=== PATIENT | female | born 1935 | race Caucasian/White ===

== ENCOUNTER 2021-01-18 12:42 | Outpatient (CLI) | payer MEDICARE, BC ==
[~2021-01-18 12:42] MED LIST: Iopamidol 370 76% 100 ML VIAL ONE
== END 2021-01-18 12:43 | disposition home or self-care (01) ==
LOC: BICCT 12:42
PROVIDERS: ATTEND Family Medicine
DX: R10.32 Left lower quadrant pain (principal); K57.30 Diverticulosis of large intestine without perforation or abscess without bleeding; I51.7 Cardiomegaly
CPT/HCPCS: 74177; 82565; Q9967

== ENCOUNTER 2023-07-11 07:42 | Outpatient (CLI) | payer MEDICARE, BC | END 2023-07-11 07:43 | disposition home or self-care (01) | LOC: NM 07:42 | PROVIDERS: ATTEND Family Medicine | DX: S22.089A Unspecified fracture of T11-T12 vertebra, initial encounter for closed fracture (principal) | CPT/HCPCS: 78306; A9503 ==

== ENCOUNTER 2023-08-16 11:02 | Emergency (ER) | payer MEDICARE, BC ==
[2023-08-16] MEDS ORDERED: Morphine 4 MG/ML VIAL ONE ×3 (11:47→16:11)
[2023-08-16] MEDS ORDERED: Ondansetron PF 4 MG/2 ML Vial ONE (11:48)
[2023-08-16 12:02] LABS: Bacteria/HPF 1+ HPF (None Seen); Bilirubin Negative (Negative); Blood, Urine Negative (Negative); CAUTI Indications for Culture Dysuria,urgency,freq; Clarity Turbid (Clear); Glucose, Urine (Dipstick) Normal (Negative); Ketone, Urine Negative (Negative); Leukocyte 75 Leu/uL (Negative); Nitrite Negative (Negative); Protein, Urine (Dipstick) Negative (Neg-Trace); RBC/HPF 0-3 HPF (0-3); Specific Gravity, Urine 1.017 (1.002-1.036); Squamous Epithelial 0-3 HPF (0-3); Urobilinogen 3 mg/dL (Less than 2)
[2023-08-16 12:04] LABS: Urine Culture Reflex No No
[2023-08-16 12:15] LABS: #Monocytes 1.3 thou/uL (0.11-0.59); #Neutrophils 12.1 thou/uL (1.40-6.50); %Basophils 0.1 % (0.0-1.0); %Lymphocytes 8.8 % (21.0-51.0); %Neutrophils 81.2 % (42.0-75.0); Hematocrit 37.6 % (36.0-47.0); Hemoglobin 12.3 g/dL (12.0-16.0); Mean Corpuscular HGB CONC 32.7 g/dL (32.0-36.0); Mean Corpuscular Hemoglobin 27.6 pg (27.0-31.0); Mean Corpuscular Volume 84.5 fl (78.0-98.0); Mean Platelet Volume 10.1 fL (7.4-10.4); Platelet Count 343 10x3/uL (130-400); RBC Distribution Width 15.1 % (11.5-14.5); Red Blood Cell (RBC) Count 4.45 mill/uL (4.20-5.40); White Blood Cell (WBC) Count 14.9 10x3/uL (4.8-10.8)
[2023-08-16 12:43] LABS: ALT (SGPT) Less than 7 U/L (8-55); AST (SGOT) 22 U/L (5-34); Albumin 3.5 g/dL (3.4-4.8); Alkaline Phosphatase 76 U/L (40-110); Anion Gap 15 mmol/L (10-20); BUN (Urea Nitrogen) 13 mg/dL (9.8-20.1); Bilirubin, Total 0.5 mg/dL (0.2-1.2); Calc. Creatinine Clearance 0 mL/min (70-130); Calcium 9.2 mg/dL (7.8-10.44); Carbon Dioxide 22 mmol/L (23-31); Chloride 96 mmol/L (98-107); Estimated GFR 85; Globulin 2.8 g/dL (2.4-3.5); Glucose 102 mg/dL (83-110); Potassium 4.5 mmol/L (3.5-5.1); Protein, Total 6.3 g/dL (5.8-8.1); Sodium 128 mmol/L (136-145)
[2023-08-16] MEDS ORDERED: Iopamidol-370 76% 500 ML MDV (1 ML CHARGE) ONE (12:53)
[2023-08-16] MEDS ORDERED: Sodium Chloride 0.9% 100 ML ONE (14:48)
[2023-08-16] MEDS ORDERED: cefTRIAXone (ROCEPHIN) 1 GM VIAL ONE (14:48)
== END 2023-08-16 16:28 | disposition home or self-care (01) ==
LOC: ERS 11:02
DX: M54.50 Low back pain, unspecified (principal); M54.6 Pain in thoracic spine; N39.0 Urinary tract infection, site not specified; I25.10 Atherosclerotic heart disease of native coronary artery without angina pectoris; I10 Essential (primary) hypertension; E78.5 Hyperlipidemia, unspecified; Z79.82 Long term (current) use of aspirin; Z79.899 Other long term (current) drug therapy
CPT/HCPCS: 74177; 80053; 81001; 85025; 86140; 96365; 96375; 96376; J0696; J2270; J2405; J3490; Q9967

== ENCOUNTER 2023-10-09 05:55 | Day surgery (SDC) | payer MEDICARE, BC ==
[2023-10-08 12:44] VITALS: BMI 20.1
[2023-10-09] MEDS ORDERED: CEFAZOLIN 1 GM VIAL ONE (06:30)
[2023-10-09] MEDS ORDERED: CEFAZOLIN 2 GM VIAL ONE (06:30)
[2023-10-09] MEDS ORDERED: Gentamicin 80 MG/2 ML VIAL ONE (06:30)
[2023-10-09] MEDS ORDERED: Lidocaine 1% (PF) 30 ML VIAL ONE (06:30)
[2023-10-09 06:36] LABS: %Basophils 0.7 % (0.0-1.0); %Eosinophils 3.3 % (0.0-10.0); %Lymphocytes 17.6 % (21.0-51.0); %Neutrophils 67.9 % (42.0-75.0); Hematocrit 38.8 % (36.0-47.0); Hemoglobin 12.6 g/dL (12.0-16.0); Mean Corpuscular HGB CONC 32.5 g/dL (32.0-36.0); Mean Corpuscular Hemoglobin 28.3 pg (27.0-31.0); Mean Platelet Volume 11.1 fL (7.4-10.4); Platelet Count 304 10x3/uL (130-400); RBC Distribution Width 14.3 % (11.5-14.5); Red Blood Cell (RBC) Count 4.46 mill/uL (4.20-5.40); White Blood Cell (WBC) Count 8.8 10x3/uL (4.8-10.8)
[2023-10-09 06:37] LABS: #Basophils 0.1 thou/uL (0.0-0.2); #Eosinphils 0.3 thou/uL (0.0-0.7); #Monocytes 0.9 thou/uL (0.11-0.59)
[2023-10-09] MEDS ORDERED: Midazolam HCl 2 mg/2 ml Vial ONE (07:19)
[2023-10-09] MEDS ORDERED: fentaNYL 50 mcg/mL 1 mL Vial ONE ×3 (07:19→12:37)
[2023-10-09] MEDS ORDERED: cloNIDine 0.1 MG TAB ONE (10:57)
[2023-10-09] MEDS ORDERED: traMADol HCl 50 MG TAB ONE (12:13)
[2023-10-09] MEDS ORDERED: Acetaminophen 500 MG TAB ONE (12:13)
[2023-10-09] MEDS ORDERED: Iopamidol 370 76% 100 ML VIAL ONE (12:55)
== END 2023-10-09 14:40 | disposition home or self-care (01) ==
LOC: SDC 05:55
PROVIDERS: ATTEND Internal Medicine Cardiovascular Disease
PROC: 02PA3MZ Removal of Cardiac Lead from Heart, Percutaneous Approach (ICD-10-PCS; principal; 2023-10-09)
PROC: 02HL3JZ Insertion of Pacemaker Lead into Left Ventricle, Percutaneous Approach (ICD-10-PCS; 2023-10-09)
DX: R07.9 Chest pain, unspecified (principal); I11.9 Hypertensive heart disease without heart failure; Z95.0 Presence of cardiac pacemaker; E87.1 Hypo-osmolality and hyponatremia; R00.1 Bradycardia, unspecified; K21.9 Gastro-esophageal reflux disease without esophagitis; E78.00 Pure hypercholesterolemia, unspecified; I49.5 Sick sinus syndrome; G47.62 Sleep related leg cramps; R25.1 Tremor, unspecified; Z82.49 Family history of ischemic heart disease and other diseases of the circulatory system; G20.A1 Parkinson's disease without dyskinesia, without mention of fluctuations; Z90.49 Acquired absence of other specified parts of digestive tract; Z79.01 Long term (current) use of anticoagulants; Z79.82 Long term (current) use of aspirin; Z79.899 Other long term (current) drug therapy
CPT/HCPCS: 33216; 33227; 71045; 85025; 93005; C1785; C1898; J3010; 33207; 33208; 33233; 93010; 99152; 99153; J0690; J1580; J2001; J2250; Q9967